=== PATIENT | male | born 2000 | race Caucasian/White ===

== ENCOUNTER 2024-11-22 22:25 | Emergency (ER) | payer MEDICAID, SELFPAY ==
[2024-11-22 22:26] VITALS: PULSE 88; O2SAT 98; BMI 28.7
[2024-11-22 22:35] VITALS: BP 133/82; PULSE 73; RESP 16; TEMP 36.5; O2SAT 97
--- NOTE | 2024-11-22 22:41 | EKG_ITS ---
[facility] Test Date: 2024-11-22 Pat Name: EDUARDO BENJAMIN Department: Room: - Gender: Male [employer] Room [employer]: : 2000 Requested By: Damir Feldman Order Number: [id number] Reading MD: Damir Feldman Measurements Intervals [place] Rate: 72 P: 32 AK: 159 QRS: 48 QRSD: 98 T: 49 QT: 369 QTc: 406 Interpretive Statements SINUS RHYTHM WITH SINUS ARRHYTHMIA No previous ECG available for comparison /store/S0/[id number]/ecg/[id number].pdf
--- NOTE | 2024-11-22 22:41 | XR_ITS ---
Examination: CT brain head without contrast. 2-D sagittal coronal reconstructions Date and time of exam:November 22, 2024 10:50 PM Indications: Syncopal episode this evening followed by dizziness and headache CTDI: vol (mGy):54.9 DLP: (mGycm):1093 Technique: Multiple CT axial sections of the brain have been obtained, 5 mm slice thickness. Contrast has not been administered. 2-D sagittal, coronal reconstructions have been obtained Low dose protocols were performed. One or more of the following dose reduction techniques were used; automated exposure control, adjustment of the mA and/or KV according to patient size, use of iterative reconstruction technique. Findings: No significant ventricular enlargement. Intra-axial or extra-axial hemorrhage density is not seen. No mass effect or midline shift Basal cisterns are not remarkable. Fourth ventricle is midline. Cranial vault intact. Impression: Negative for acute hemorrhage, mass effect or midline shift Advise clinical correlation and follow-up accordingly
--- NOTE | 2024-11-22 22:42 | PD.EDRME ---
Rapid Medical Screening Exam [facility] Arrival date/time: 11/22/24 22:25 24-year-old male with a history of asthma presents to the emergency room with a chief complaint of a syncopal episode that occurred at home. Patient states he had a syncopal episode that lasted 1 minute per his . Patient denies any trauma. I have greeted and performed a focused initial assessment of this patient. A comprehensive ED assessment and evaluation of the patient, analysis of all test results, and completion of the medical decision making process will be conducted by additional ED providers. Chief Complaint: Syncope / Near Syncope Vital signs: Vital Signs Temperature 97.7 F 11/22/24 22:35 Pulse Rate 73 11/22/24 22:35 Respiratory Rate 16 11/22/24 22:35 Blood Pressure 133/82 H 11/22/24 22:35 Pulse Oximetry (%) 97 11/22/24 22:35 Oxygen Delivery Method Room Air 11/22/24 22:35 Vital signs reviewed by provider: Yes
[2024-11-22 23:05] LABS: Basophils % (Auto) 0 % (0-2.5); Eosinophils # (Auto) 0.1 Thou/mm3 (0.0-0.5); Eosinophils % (Auto) 1 % (0-10); Hematocrit 39.9 % (41.0-53.0); Hemoglobin 14.5 g/dL (13.5-16.0); Immature Granulocytes % (Auto) 0 % (0-0); Immature Granulocytes Auto 0.02 Thou/mm3 (0.00-0.00); Lymphocytes # (Auto) 2.5 Thou/mm3 (1.0-4.8); Lymphocytes % (Auto) 38 % (10-50); Mean Corpuscular HGB Conc 36.3 g/dl (31.0-37.0); Mean Corpuscular Hemoglobin 30.3 pg (25.0-35.0); Mean Corpuscular Volume 83 fL (80-100); Monocytes # (Auto) 0.5 Thou/mm3 (0.0-0.8); Monocytes % (Auto) 8 % (0-12); Neutrophils # (Auto) 3.5 Thou/mm3 (1.8-7.7); Neutrophils % (Auto) 53 % (37-80); Nucleated Red Blood Cell % 0 /100 WBC (0); Platelet Count 193 Thou/mm3 (140-440); RDW Standard Deviation 36.1 fL (35.1-43.9); Red Blood Count 4.79 Miln/mm3 (4.50-5.90); White Blood Count 6.7 Thou/mm3 (3.8-10.6)
[2024-11-22 23:30] LABS: Collection Type, Urine Clean Catch
[2024-11-22 23:46] LABS: Alanine Aminotransferase 25 U/L (10-49); Albumin, Serum 5.3 gm/dL (3.5-5.0); Albumin/Globulin Ratio 2.2 (1.2-2.2); Alkaline Phosphatase 61 U/L (46-116); Anion Gap 7 (7-16); Aspartate Amino Transferase 13 U/L (0-34); BUN/Creatinine Ratio 16 Ratio (12-20); Bilirubin,Total 0.6 mg/dL (0.3-1.2); Blood Urea Nitrogen 16 mg/dL (9-23); Calcium 10.3 mg/dL (8.3-10.6); Calcium (Corrected) 10.3 mg/dL (8.5-10.1); Carbon Dioxide 28.7 mMol/L (20.0-31.0); Chloride 102 mMol/L (98-107); Estimated Creatinine Clearance 126.8 mL/min (>60); Globulin 2.4 gm/dL (2.3-3.5); Glucose 134 mg/dL (74-106); Osmolality,Calculated 278 (275-295); Potassium 4.2 mMol/L (3.4-5.1); Sodium 138 mMol/L (136-145); Total Protein 7.7 gm/dL (5.7-8.2); Troponin I < 0.002 ng/mL (0.0-0.045); eGFR > 60 See Note
[2024-11-22 23:58] LABS: Bacteria,Urine Rare; Bilirubin,Urine Negative (Negative); Blood,Urine Negative (Negative); Clarity,Urine Clear (Clear/Hazy); Color,Urine Yellow (Lt Yel-Yel); Glucose, Urine Negative (Negative); Ketones,Urine Negative (Negative); Leukocyte Esterase,Urine Negative (Negative); Nitrite,Urine Negative (Negative); Protein,Urine Trace (Neg - Trace); RBC,Urine 9 /hpf (0-3); Squamous Epithelial Cell,Urine < 1 /hpf (0-5); Urobilinogen,Urine Negative mg/dL (0.0-1.0); WBC,Urine 2 /hpf (0-5)
[2024-11-23 00:28] VITALS: BP 118/67; PULSE 70; RESP 18; TEMP 36.6; O2SAT 97
[2024-11-23 01:48] VITALS: BP 128/66; PULSE 56; RESP 18; TEMP 36.5; O2SAT 98
[2024-11-23 01:50] VITALS: BP 128/66; PULSE 74; RESP 18; O2SAT 99
[2024-11-23 03:31] VITALS: BP 113/70; PULSE 71; RESP 18; TEMP 36.5; O2SAT 99
--- NOTE | 2024-11-23 04:08 | PD.EDSYNC ---
ED Syncope RME/HPI General Chief Complaint: Syncope / Near Syncope Stated Complaint: SYNCOPAL EPISODE Time Seen by Provider: 11/22/24 23:15 Arrival date/time: 11/22/24 22:25 Limitations: no limitations RME / HPI RME / HPI narrative: 11/22/24 22:25 24-year-old male with a history of asthma presents to the emergency room with a chief complaint of a syncopal episode that occurred at home. Patient states he had a syncopal episode that lasted 1 minute per his . Patient denies any trauma. I have greeted and performed a focused initial assessment of this patient. A comprehensive ED assessment and evaluation of the patient, analysis of all test results, and completion of the medical decision making process will be conducted by additional ED providers. ------- Dr. Reynolds's Main ED Evaluation: 24yo male with a history of asthma presents to the ED for a chief complaint of syncope. Patient states he was feeling dizzy and sweaty at home, so he laid down on the floor. states the patient passed out for a few seconds. He endorses feeling nauseated. He states he has not been drinking a lot of fluids at home. He denies any vomiting, fever, chills, numbness or any other associated symptoms. Related Data Home Medications ?Medication ?Instructions ?Recorded ?Confirmed No Known Home Medications 12/11/17 12/11/17 Allergies Allergy/AdvReac Type Severity Reaction Status Date / Time morphine Allergy Unresponsiv Verified 12/11/17 16:58 e Review of Systems Review of Systems Systems Reviewed: All systems reviewed, normal except as documented ED Exam General Limitations: Present no limitations General appearance: Present alert and in no apparent distress Head Head exam: Present atraumatic Eye Eye exam: Present normal appearance, PERRL and EOMI ENT ENT exam: Present normal exam, normal oropharynx and mucous membranes dry Neck Neck exam: Present normal inspection, full ROM and trachea midline Chest Chest inspection: Present normal inspection and symmetric chest wall rise Respiratory Respiratory exam: Present normal lung sounds bilaterally Cardiovascular Cardiovascular exam: Present regular rate, normal rhythm and normal heart sounds Abdominal Exam Abdominal exam: Present soft and normal bowel sounds Extremities Exam Extremities exam: Present normal inspection and full ROM Back Exam Back exam: Present normal inspection and full ROM Neurological Exam Neurological exam: Present alert, oriented X3 and CN II-XII intact Psychiatric Psychiatric exam: Present normal affect and normal mood Skin Skin exam: Present warm, dry, intact and normal color Course Quality Measures none Orders Category Date Time Status EKG (ED ONLY) *Do not use* NOW Care 11/22/24 22:[address] head/brain wo con Stat Exams 11/22/24 22:41 Completed EKG (ED Only) Stat Exams 11/22/24 22:41 Draft CBC Stat Lab 11/22/24 22:57 Completed Comprehensive Metabolic Panel Stat Lab 11/22/24 22:57 Completed Troponin I Stat Lab 11/22/24 22:57 Completed Urinalysis Stat Lab 11/22/24 23:07 Completed Vital Signs Vital signs: Vital Signs Temperature 97.7 F 11/22/24 22:35 Pulse Rate 73 11/22/24 22:35 Respiratory Rate 16 11/22/24 22:35 Blood Pressure 133/82 H 11/22/24 22:35 Pulse Oximetry (%) 97 11/22/24 22:35 Oxygen Delivery Method Room Air 11/22/24 22:35 Pulse ox is 97% on room air, which is normal according to my interpretation. Syncope Patient data External records reviewed:: [facility] previous records (Per chart review, patient was seen here in 2018 for syncope.) Clinical information provided by:: patient Social determinants that could affect healthcare access:: none Patient has the following chronic illnesses:: asthma How is presenting disease/condition affected by chronic disease/condition?: uneffected by Evaluation data The following diagnostics were reviewed and interpreted by me:: lab results, radiology exam(s) and EKG tracing(s) Lab and/or radiology exams considered but not ordered:: none Interpretation Summary: CBC is normal, CMP is normal, troponin is normal, according to my interpretation. EKG done at 2245, NSR, rate of 72, normal intervals, normal axis, no acute ST or T-wave changes, no STEMI, according to my interpretation. ----- [place] [facility] Report Signed Patient: EDUARDO BENJAMIN. Record#: [id number] Birthdate: 2000 Age/Sex: 24 / M [facility] Att[facility] Dr: Ordering Physician: Damir Moise Date of Service: 11/22/24 Procedure(s): CT head/brain wo con Accession Number(s): [id number] cc: Damir Moise; Unruly Oshea MD; NO PRIMARY/FAMILY,PHYSICIAN~ Examination: CT brain head without contrast. 2-D sagittal coronal reconstructions Date and time of exam:November 22, 2024 10:50 PM Indications: Syncopal episode this evening followed by dizziness and headache CTDI: vol (mGy):54.9 DLP: (mGycm):1093 Technique: Multiple CT axial sections of the brain have been obtained, 5 mm slice thickness. Contrast has not been administered. 2-D sagittal, coronal reconstructions have been obtained Low dose protocols were performed. One or more of the following dose reduction techniques were used; automated exposure control, adjustment of the mA and/or KV according to patient size, use of iterative reconstruction technique. Findings: No significant ventricular enlargement. Intra-axial or extra-axial hemorrhage density is not seen. No mass effect or midline shift Basal cisterns are not remarkable. Fourth ventricle is midline. Cranial vault intact. Impression: Negative for acute hemorrhage, mass effect or midline shift Advise clinical correlation and follow-up accordingly Dictated By: Unruly Oshea MD Signed By: <Electronically signed by Unruly Oshea MD in [place]> 11/22/24 4896 Medications / Prescriptions Medications or Prescriptions considered but not ordered:: none Medication administrations:: none Consultations Consultation(s) initiated? (list below): No Diagnosis Syncope Differential Diagnosis: vasovagal syncope, dehydration and other (electrolyte abnormality) Most likely diagnosis given after review of the tests above:: see below Admission Indicated Admission indicated?: not indicated Explain why admission is indicated or not indicated:: Admission criteria not met. Patient tolerated PO fluids here in the ED. Admission Request Was there a request for admission?: No Disposition Plan Disposition Plan: Discharge Discharge Attestation Discharge Attestation: The patient and all family members were given an opportunity to ask questions and understood the discharge instructions. Discharge instructions specifically effects, indications for sooner follow up or return to the emergency department, and the expected course of current diagnosis. Patient condition: Stable Discharge Plan Plan Patient Disposition: HOME (Self Care) Patient condition on transfer: Stable Prescriptions/Referrals Prescriptions/Med Rec: No Action No Known Home Medications Referrals: No Primary/Family,Physician [Primary Care Provider] - In 1 week Problem List Clinical Impression: Dehydration, Near syncope Patient/Caregiver Discharge Instructions Education Materials: ED Dehydration (Adult), ED Proteinuria Additional Instructions: Today you had some protein in your urine. This may be from dehydration however you will have to get a repeat urine as an outpatient with your primary care in the next 2 weeks. Stay hydrated with Pedialyte or Gatorade. Your urine should be almost clear. Return to the emerged part for any worsening symptoms or any other concerns today your head CT is negative and your EKG does not show any concerning signs. Print Language: Wolof Stand Alone Forms: Florina Award Info., Patient Portal Info Letter
== END 2024-11-23 04:03 | disposition home or self-care (01) ==
PROVIDERS: Nurse Practitioner Family; Emergency Provider Emergency Medicine
DX: E86.0 Dehydration (principal); R55 Syncope and collapse; I49.8 Other specified cardiac arrhythmias
CPT/HCPCS: 36415; 70450; 80053; 81001; 84484; 85025; 93005; 99284